=== PATIENT | male | born 1940 | race Two or more races ===

== ENCOUNTER → 2021-03-04 | Outpatient (CLI) | payer MEDICARE ==
--- NOTE | 2021-03-04 17:25 | KCIC ---
Lumbar spine x-rays 3 views HISTORY: Bilateral leg weakness. 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 Lumbar vertebral body height and alignment intact. No fracture evident. There is mild disc space n arrowing posteriorly at L3-L4 with mild endplate spurring. There is mild disc space narrowing posteri preeti at L4-L5. There is moderate disc space narrowing at L5-S1 with a disc osteophyte. There are mild facet spurs at the lower lumbar spine at L4-L5 and L5-S1 as well. IMPRESSION: No acute osseous injury. 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 See above. Electronically signed by: Danny Finn MD (03/04/2021 5:23 PM) [id number]
== END ==
LOC: KCIC 13:56
PROVIDERS: ATTEND Family Medicine
DX: R29.898 Other symptoms and signs involving the musculoskeletal system (principal); M47.817 Spondylosis without myelopathy or radiculopathy, lumbosacral region; M48.07 Spinal stenosis, lumbosacral region; M25.78 Osteophyte, vertebrae; M46.07 Spinal enthesopathy, lumbosacral region
CPT/HCPCS: 72100